=== PATIENT | male | born 1985 | race African-American/Black ===

== ENCOUNTER 2025-02-26 20:57 | Emergency (ER) | payer BC, SELFPAY ==
[2025-02-26 20:57] VITALS: BMI 30.9
[2025-02-26 21:15] VITALS: BP 187/112
--- NOTE | 2025-02-26 23:27 | ED.GENMED ---
History of Present Illness
General
Chief Complaint: Rabies
Source: patient
Exam Limitations: none
Time Seen by Provider: 02/26/25 23:03
Nursing documentation reviewed up to this point in time: agreed with
History of Present Illness
History of Present Illness:
39 y/o M hh/o HTN
here after being exposed to bat in his house
woke up with the bat flying around the bedroom
it flew into the fan and then he collected it
he doesn't believe he came into contact with the bat
no known bites
did not take bp meds today
no cp, sob, headache
Past History
Past History
ED Past Medical History: HTN
ED Past Surgical History: None
Social History
Tobacco: Non-smoker
Alcohol: None
Review of Systems
Review of Systems
Allergies reviewed?: Yes
All Other Systems: Not applicable
Phy Exam
Physical Exam
Physical Exam:
GENERAL: Alert , in no apparent distress
CARDIAC: Regular rate and rhythm .
LUNGS: Clear breath sounds bilaterally, no acute respiratory distress, no wheezes/rales/rhonchi
NEUROLOGICAL: Alert and oriented, no focal neuro deficits
PSYCH: Normal and appropriate interaction.
Course
Orders/Labs/Results
Orders:
Orders
02/26/25 23:35
Rabies Immune Globulin/Pf [HyperRAB] 2,008 unit IM NOW STA
02/26/25 23:45
Rabies Vaccine (Pcec)/Pf [Rabavert Rabies Vacc W-Diluent] 2.5 unit IM .ONCE ONE
Vital Signs
Initial and Last Documented VS:
Initial Vital Signs
Temp Pulse Resp Pulse Ox
36.7 C 54 18 97
02/26/25 21:13 02/26/25 21:13 02/26/25 21:13 02/26/25 21:13
Last Documented Vital Signs
Temp Pulse Resp BP Pulse Ox
36.6 C 74 16 180/110 97
02/26/25 23:28 02/26/25 23:28 02/26/25 23:28 02/26/25 23:28 02/26/25 23:29
MDM/Problems Addressed
Differential Diagnosis Includes:
rabies
MDM/Problems Addressed:
39 y/o M
htn
missed doses of meds
here for concern for rabies exposure after finding live bat that flying into ceiling fan
no direct contact known
requests rabies vaccine
no cp, sob, vision changes, headache
appreciate bp elevation
hasn't taken meds and was taking some cold medications the past few days for improving URI
counseled on taking meds and repeatin BP
asymptmoatic
*Pulse Oximetry
SaO2: 97
Patient hypoxic: no (97)
*Critical Care Note
Total Time (30-74mins, 75-104mins- exclusive of procedures): Not Applicable
ED Attending Note
-
Portions of this chart may have been created with voice recognition software.� Occasional wrong word or��sound alike� substitutions may have occurred due to the inherent limitations of voice recognition software.
Discharge Plan
Departure
Patient Disposition: Home (Routine Discharge)
Date of Disposition: 02/26/25
Time of Disposition: 23:36
Patient with high blood pressure during this ER visit?: No
Condition: Fair
Covid-19: Not Applicable
Discharge Problem:
Rabies
Instructions: BLOOD PRESSURE, Rabies
Prescriptions:
New
rabies vacc,human diploid (PF) 2.5 unit recon soln
See Rx Instructions .ROUTE .COMPLEX Qty: 3 0RF
Rx Instructions:
1 mL intramuscularly ON 03/01, 03/05 AND 03/12
No Action
metoprolol succinate 50 mg Tablet Extended Release 24 Hr
50 mg PO DAILY
losartan 100 mg Tablet
100 mg PO DAILY
Stand Alone Forms: Rabies Vaccine Post Exp Dosing
Activity Restrictions/Additional Instructions:
RETURN TO THE [facility] ON 03/01, 03/05, 03/12 FOR ADDITIONAL SERIES
TAKE YOUR BLOOD PRESSURE MEDICATION
Interventions
Interventions:
*Risk Screen - Suicide Last Done: 02/26/25 21:14
*General Assessment Last Done: 02/26/25 21:14
*Neglect/Abuse Screening Last Done: 02/26/25 21:14
Discharge Date and Time
Print Language: AMERICAN
[2025-02-26 23:28] VITALS: BP 180/110
[2025-02-26] MEDS: RABAVERT RABIES VACC W-DILUENT 2.5 UNIT IM (23:49)
[2025-02-27 00:24] VITALS: BP 156/78
== END 2025-02-27 00:24 | disposition home or self-care (01) ==
LOC: EMR 20:57
PROVIDERS: EMERGENCY PHYSICIAN Emergency Medicine
DX: Z23 Encounter for immunization (principal); Z20.3 Contact with and (suspected) exposure to rabies; I10 Essential (primary) hypertension; Z88.8 Allergy status to other drugs, medicaments and biological substances; Z91.013 Allergy to seafood
CPT/HCPCS: 99284; 96372; 90471; 90375; 90675

== ENCOUNTER 2025-03-12 08:26 | Outpatient (RCR) | payer BC, SELFPAY ==
[2025-03-01 09:30] VITALS: BP 161/111
[2025-03-01 09:35] VITALS: BP 179/114
[2025-03-01] MEDS: RABAVERT RABIES VACC W-DILUENT 2.5 UNIT IM (09:45)
[2025-03-01 09:50] VITALS: BP 183/118
--- NOTE | 2025-03-01 10:02 | PTCARENOTE ---
Pt arrived with elevated BP. Patient verbalized his PCP recently changed his medication regimen that his objective c developer prescribed. Pt has no complaints of headache/chest pain/shortness of breath/dizziness. pt called PCP and is driving directly there
to be evaluated. Educated patient on the signs/symptoms of stroke.
[2025-03-05 08:35] VITALS: BP 152/97
[2025-03-05] MEDS: RABAVERT RABIES VACC W-DILUENT 2.5 UNIT IM (08:49)
[2025-03-12 08:39] VITALS: BP 131/82
[2025-03-12] MEDS: RABAVERT RABIES VACC W-DILUENT 2.5 UNIT IM (08:46)
== END 2025-03-13 09:47 | disposition home or self-care (01) ==
LOC: OID 08:26
PROVIDERS: ATTENDING PHYSICIAN Emergency Medicine
DX: Z20.3 Contact with and (suspected) exposure to rabies (principal); Z23 Encounter for immunization
CPT/HCPCS: 90471; 90675